=== PATIENT | male | born 1990 | race Caucasian/White ===

== ENCOUNTER 2017-09-07 12:01 | Inpatient (IN) | payer MEDICAID, OTHER ==
[~2017-09-07] VITALS: Ht 180.3 cm; Wt 82.1 kg
[2017-09-07 12:09] VITALS: BP 158/108
--- NOTE | 2017-09-07 12:12 | NUR ---
PATIENT TAKEN TO ER BED 11
[2017-09-07] MEDS ORDERED: KETOROLAC 30 MG/ML VIAL IM ONE (12:20)
[2017-09-07] MEDS ORDERED: ONDANSETRON 4 MG ODT PO ONE (12:20)
[2017-09-07 13:04] LABS: BASOPHILS % (AUTO) 0.3 % (0.0-2.0); EOSINOPHILS % (AUTO) 0.3 % (0.0-4.0); HEMATOCRIT 50.5 % (36-52); LYMPHOCYTES # (AUTO) 1.8 K/uL (2.0-11.5); LYMPHOCYTES % (AUTO) 14.7 % (20.5-51.1); MEAN CORPUSCULAR HEMOGLOBIN 31 pg (27-31); MEAN CORPUSCULAR HGB CONC 34 g/dL (33-37); MEAN CORPUSCULAR VOLUME 91.7 fL (80-94); MONOCYTES # (AUTO) 0.7 K/uL (0.8-1.0); MONOCYTES % (AUTO) 6.3 % (1.7-9.3); NEUTROPHILS # (AUTO) 9.4 K/uL (1.8-7.7); NEUTROPHILS % (AUTO) 78.4 % (42.2-75.2); PLATELET COUNT (AUTO) 374 K/uL (140-450); RED BLOOD CELL COUNT(AUTO) 5.51 MIL/uL (4.20-6.10); RED CELL DISTRIBUTION WIDTH 13.2 % (11.6-13.7); WHITE BLOOD COUNT (AUTO) 11.9 K/uL (4.8-10.8)
--- NOTE | 2017-09-07 13:10 | NUR ---
NON RADIATING EPIGASTRIC THROBBING PAIN X2 DAYS; C/O WEAKNESS AND NAUSEA, DENIES VOMITING; PT STATES "IT FEELS LIKE I GOT KICKED IN THE STOMACH." PT ADMITS TO EATING SPOILED FOOD SEVERAL DAYS AGO, PT IS HOMELESS. DENIES DRUG USE. ABD SOFT, TENDER WITH PALPATION. NO OBVIOUS INJURY NOTED-NO BRUISING. DENIES DYSURIA, FEVERS/CHILLS. PT WITH DISHELVED APPEARANCE. HX DENIES
--- NOTE | 2017-09-07 13:13 | NUR ---
URINE COLLECTED AND SENT
[2017-09-07 13:54] LABS: ANION GAP 12.3 (8-16); CARBON DIOXIDE 30.2 mmol/L (21-32); CREATININE 0.7 mg/dL (0.7-1.3); POTASSIUM 4.5 mmol/L (3.5-5.1); TOTAL BILIRUBIN 0.3 mg/dL (0.0-1.0)
[2017-09-07] MEDS ORDERED: MORPHINE SULFATE 4 MG/ML SYR IVP ONE (14:15)
[2017-09-07] MEDS ORDERED: NACL 0.9% 1,000 ML IV ONE (14:15)
--- NOTE | 2017-09-07 14:35 | NUR ---
PT UPDATED ON STATUS FOR ADMISSION, VERBALIZED UNDERSTANDING.
[2017-09-07] MEDS ORDERED: ACETAMINOPHEN 325 MG TAB PO PRN (14:45)
[2017-09-07] MEDS ORDERED: HYDROcodone/APAP 7.5/325 MG 1 TAB PO PRN (14:45)
[2017-09-07] MEDS ORDERED: DOCUSATE SODIUM 100 MG GELCAP PO PRN (14:45)
[2017-09-07] MEDS ORDERED: MORPHINE SULFATE 4 MG/ML SYR IVP PRN (14:45)
[2017-09-07 15:15] LABS: APPEARANCE,URINE CLEAR (CLEAR); BILIRUBIN,URINE NEGATIVE (NEGATIVE); BLOOD, URINE NEGATIVE (NEGATIVE); COLOR,URINE YELLOW (YELLOW); LEUKOCYTE ESTERASE ,URINE NEGATIVE (NEGATIVE); NITRITE, URINE NEGATIVE (NEGATIVE); PH,URINE 7.5 (5.0-9.0); UGLUCOSE NEGATIVE (NEGATIVE)
[2017-09-07] MEDS ORDERED: hydrALAZINE 20 MG/ML VIAL IVP SCH (15:15)
--- NOTE | 2017-09-07 15:15 | NUR ---
NO ACUTE CHNAGES IN CONDITON, PT WITH EYES CLOSED, MOM AT BEDSIDE. VSS, ON MONITOR
[2017-09-07 15:30] VITALS: BP 152/113
--- NOTE | 2017-09-07 15:30 | NUR ---
PATIENT ARRIVED ON MST UNIT VIA ER BED/GURNEY. PATIENT ABLE TO AMBULATE FROM ER BED TO MST BED INDEPENDENTLY. NO DISTRESS NOTED. PAIN WITHIN TOLERABLE AT THIS TIME. RESPIRATIONS EVEN, UNLABORED, ON ROOM AIR. AAOX3, CALM, COOPERATIVE, SKIN COLOR APPROPRIATE TO ETHNICITY, WARM TO TOUCH. ABDOMEN SOFT, NON-DISTENDED. LUNGS CTA ON ALL LOBES. IV SITE INTACT, PATENT AND INFUSING IVF PER ORDERS. BP WAS ELEVATED, HYDRALAZINE IVP GIVEN PER MD ORDERS. ORIENTED PATIENT TO ROOM AND CALL LIGHT. REVIEWED PLAN OF CARE WITH PATIENT. PATIENT VERBALIZED UNDERSTANDING. SAFETY MEASURES IN PLACE, CALL LIGHT WITHIN REACH. WILL CONTINUE TO MONITOR.
--- NOTE | 2017-09-07 15:36 | NUR ---
Patient will be admitted to care of DR GARSIA. Admited to TELEMETRY. Will go to room 105B. Belongings list completed AND SENT WITH PT. Report GIVEN to ERIK IBARRA.
[2017-09-07 15:49] LABS: CHOL/HDL RATIO 2.6 (1-4.5); MAGNESIUM 2.1 mg/dL (1.8-2.4); THYROID STIMULATING HORMONE 0.43 uIU/mL (0.34-3.74)
[2017-09-07 15:54] LABS: PROTHROMBIN TIME 10.7 secs (10.8-13.4)
[2017-09-07 15:58] LABS: BARBITURATE, URINE NEG. ng/ml (NEG <=200); BENZODIAZEPINE, URINE NEG. ng/mL (NEG <=200); CANNABINOID, URINE POS. ng/mL (NEG <=50); COCAINE, URINE NEG. ng/mL (NEG <=300); OPIATE, URINE NEG. ng/mL (NEG <=2000); PHENCYCLIDINE SCREEN,URINE NEG. ng/mL (NEG <=25)
[2017-09-07] MEDS ORDERED: ONDANSETRON 4 MG/2 ML VIAL IM/IVP PRN (16:00)
[2017-09-07] MEDS: NACL 0.9% 1,000 ML IV SCH ×2 (16:04→21:54)
[2017-09-07] MEDS ORDERED: LEVOFLOXACIN 750 MG/D5W PREMIX 150 ML IV SCH (17:00)
--- NOTE | 2017-09-07 18:05 | NUR ---
PATIENT LYING IN BED SLEEPING, AROUSABLE BY VOICE. NO DISTRESS NOTED. PAIN WITHIN TOLERABLE AT THIS TIME. BP IS ELEVATED HOWEVER PATIENT IS ASYMPTOMATIC. SCHEDULED ANTIBIOTIC MEDICATION DUE GIVEN. SAFETY MEASURES IN PLACE, CALL LIGHT WITHIN REACH. WILL CONTINUE TO MONITOR.
--- NOTE | 2017-09-07 18:27 | NUR ---
PATIENT LYING IN BED SLEEPING, AROUSABLE BY VOICE. NO DISTRESS NOTED. WILL CONTINUE TO MONITOR.
--- NOTE | 2017-09-07 19:05 | NUR ---
BROOKS LEFT TAYLOR, EXPLAINED TO PT REGARDING WHY THE IS ADMITTING HIM, PT STATED HE STILL WANT TO GO HOME, NOTIFIED DR. ALCOCER, PT STATED WANTS TO GO HOME RIGHT NOW AND DOES NOT WANT TO SEE THE TAYLOR MERAZ PAPER SIGNED, IV TAKEN OUT. Addendum: 09/07/17 at 2053 by Rosy Johnson RN SHELBY PT
--- NOTE | 2017-09-07 19:31 | NUR ---
GAVE REPORT TO SAFETY AND HEALTH MANAGER NURSE FOR CONTINUITY OF CARE. PATIENT IN STABLE CONDITION.
--- NOTE | 2017-09-07 19:32 | NUR ---
PT LEFT UNIT IN STABLE CONDITION, NO DISTRESS NOTED, ALL BELONGING WITH PT. Addendum: 09/07/17 at 2053 by Rosy Johnson RN WRONG PT
--- NOTE | 2017-09-07 19:33 | NUR ---
RECD. RESTING IN SLEEPING, EASILY WAKES UP WHEN NAME CALLED AND QUESTION ASKED. A/OX3. RESPIRATION EVEN AND UNLABORED. IV OF NS AT 140 ML/HR INFUSING, LEFT AC G22. ANSWERED "TIRED" WHEN ASKED HOW HE IS FEELING. PLAN OF CARE FOR THE SHIFT DISCUSSED. JUST NODS. REMINDED TO CALL NURSE WHEN NEEDING HELP, CALL LIGHT IN REACH. VERBALIZED UNDERSTANDING. DENIES PAIN 0/10.
[2017-09-07 20:00] VITALS: BP 145/98
--- NOTE | 2017-09-07 20:00 | NUR ---
Patient's Plan of Care was discussed and reviewed with CELL ROOM OPERATOR: AYO
[2017-09-08] VITALS (7 sets, daily range): BP systolic 136–154; BP diastolic 88–111
[2017-09-08] MEDS: NACL 0.9% 1,000 ML IV SCH ×4 (00:35→19:28)
--- NOTE | 2017-09-08 00:40 | NUR ---
INFORMED DR. GONZALEZ, PATIENT BP - 150/105. HR -67. WILL CHECK PATIENT MEDICATIONS.
--- NOTE | 2017-09-08 03:00 | NUR ---
AWAKE, RESTING IN BED, WATCHING TV.
--- NOTE | 2017-09-08 06:00 | NUR ---
SLEEPING COMFORTABLY IN BED.
--- NOTE | 2017-09-08 06:30 | NUR ---
INFORMED RESIDENT ON DUTY FOR THIS AM, PT BP - 153/110, WILL ORDER MEDICATION.
--- NOTE | 2017-09-08 07:05 | NUR ---
PATIENT ASLEEP AT THIS TIME. PATIENT AROUSABLE TO NAME. PATIENT ALERT AND ORIENTED X3. HAD TO REORIENT PATIENT TO WHICH HOSPITAL HE IS AT. PATIENT PRESENTS WITH NO DIFFICULTY BREATHING. PATIENT DESCRIBES HIS PAIN IN HIS ABDOMEN DULL AND NON-TENDER. PATIENT STATES, "THE PAIN IS BEARABLE". PATIENT HAS A LEFT AC IV 22G FLOWING 140 ML/HR NORMAL SALINE. UPDATED BOARD IN PATIENT'S ROOM. EMPTIED PATIENT'S URINAL. URINE APPEARS CLEAR AND LIGHT YELLOW. PUT CALL LIGHT WITHIN REACH OF PATIENT. WILL CONTINUE TO MONITOR
--- NOTE | 2017-09-08 07:05 | NUR ---
RESTING COMFORTABLY SLEEPING IN BED, ENDORSED TO AM NURSE FOR CONTINUITY OF CARE.
--- NOTE | 2017-09-08 07:09 | NUR ---
PATIENT HAS BEEN SCREENED AND CATEGORIZED LOW NUTRITION RISK. PATIENT WILL BE SEEN WITHIN 7 DAYS OF ADMISSION. 09/14/17 CARRIE COLIN MS, RDN
--- NOTE | 2017-09-08 08:30 | NUR ---
PATIENT AWAKE AT THIS TIME. PATIENT COMPLAINS OF NO PAIN AND SHOWS NO SIGNS OF RESPIRATORY DISTRESS. WILL CONTINUE TO MONITOR PATIENT.
[2017-09-08 08:36] LABS: T4 (THYROXINE) 5.4 ug/dL (4.5-12.0)
[2017-09-08] MEDS ORDERED: LACTOBACILLUS RHAMNOSUS GG 1 EACH CAP PO SCH (09:00)
[2017-09-08] MEDS ORDERED: LISINOPRIL 10 MG TAB PO SCH (09:00)
[2017-09-08 10:04] LABS: BASOPHILS % (AUTO) 0.4 % (0.0-2.0); EOSINOPHILS % (AUTO) 0.5 % (0.0-4.0); HEMATOCRIT 50.5 % (36-52); HEMOGLOBIN 16.9 g/dL (12.0-18.0); LYMPHOCYTES # (AUTO) 1.5 K/uL (2.0-11.5); MEAN CORPUSCULAR HEMOGLOBIN 31 pg (27-31); MEAN CORPUSCULAR HGB CONC 34 g/dL (33-37); MEAN CORPUSCULAR VOLUME 91.9 fL (80-94); MONOCYTES # (AUTO) 0.7 K/uL (0.8-1.0); MONOCYTES % (AUTO) 7.7 % (1.7-9.3); NEUTROPHILS # (AUTO) 6.8 K/uL (1.8-7.7); NEUTROPHILS % (AUTO) 74.4 % (42.2-75.2); PLATELET COUNT (AUTO) 337 K/uL (140-450); RED CELL DISTRIBUTION WIDTH 13.3 % (11.6-13.7); WHITE BLOOD COUNT (AUTO) 9.1 K/uL (4.8-10.8)
[2017-09-08 10:17] LABS: CARBON DIOXIDE 30.1 mmol/L (21-32); CREATININE 0.8 mg/dL (0.7-1.3); POTASSIUM 4.1 mmol/L (3.5-5.1)
[2017-09-08 10:20] LABS: MAGNESIUM 1.8 mg/dL (1.8-2.4); PHOSPHORUS 3.3 mg/dL (2.5-4.9)
--- NOTE | 2017-09-08 10:31 | NUR ---
PATIENT ASLEEP AT THIS TIME. NO SIGNS OF PAIN. NO RESPIRATORY DISTRESS OR RESPIRATORY DEPRESSION. WILL CONTINUE TO MONITOR PATIENT.
--- NOTE | 2017-09-08 12:20 | NUR ---
PATIENT ASLEEP AT THIS TIME. NO COMPLAINTS OF PAIN. WILL CONTINUE TO MONITOR PATIENT.
--- NOTE | 2017-09-08 13:35 | NUR ---
PATIENT ASLEEP AT THIS TIME. NO SIGNS OF PAIN. WILL CONTINUE TO MONITOR PATIENT.
--- NOTE | 2017-09-08 15:00 | NUR ---
PATIENT COMPLAINS OF NO PAIN. WILL CONTINUE TO MONITOR PATIENT.
--- NOTE | 2017-09-08 19:15 | NUR ---
GAVE REPORT TO NIGHTSHIFT NURSE AT BEDSIDE. PATIENT IN STABLE CONDITION.
--- NOTE | 2017-09-08 19:20 | NUR ---
RECEIVED PT REPORT AT BEDSIDE FROM DAYSNVFT NURSE FOR CONTINUITY OF CARE. PT WAS ASLEEP. AAOX4. NO S/S OF DISTRESS. PT ON RA. NO SOB. NO COMPLAINTS OF PAIN AT THIS TIME. BED LOWERED CALL LIGHT WITHIN REACH WILL CONTINUE TO MONITOR.
--- NOTE | 2017-09-08 21:43 | NUR ---
CHECKED ON PATIENT. PATIENT IS ASLEEP AND I GAVE HIM ORANGE JUICE. WILL CONTINUE TO MONITOR.
--- NOTE | 2017-09-08 23:52 | NUR ---
ASSESSED PT. PT ASLEEP. MONITORED VITAL SIGNS. PT ASLEEP. NO SOB. NO S/S OF DISTRESS. WILL CONTINUE TO MONITOR.
[2017-09-09] MEDS: NACL 0.9% 1,000 ML IV SCH ×2 (01:09→08:57)
[2017-09-09 04:00] VITALS: BP 132/83
--- NOTE | 2017-09-09 04:15 | NUR ---
TOOK PATIENTS VITAL SIGNS. PT ASLEEP. NO S/S OF DISTRESS, NO SOB. NO COMPLAINTS OF PAIN. WILL CONTINUE TO MONITOR.
--- NOTE | 2017-09-09 06:22 | NUR ---
DID ROUND CHECKS ON PT. PT WAS ASLEEP. ASSESSED ENVIRONMENT. NO SOB. NO S/S OF DISTRESS. WILL CONTINUE TO MONITOR.
[2017-09-09] MEDS ORDERED: LISI10TA11 PO (07:03)
[2017-09-09 07:14] LABS: BASOPHILS % (AUTO) 0.4 % (0.0-2.0); EOSINOPHILS # (AUTO) 0.1 K/uL (0-0.4); EOSINOPHILS % (AUTO) 1.3 % (0.0-4.0); HEMOGLOBIN 16.8 g/dL (12.0-18.0); LYMPHOCYTES # (AUTO) 2.1 K/uL (2.0-11.5); LYMPHOCYTES % (AUTO) 21.1 % (20.5-51.1); MEAN CORPUSCULAR HEMOGLOBIN 31 pg (27-31); MEAN CORPUSCULAR HGB CONC 34 g/dL (33-37); MEAN CORPUSCULAR VOLUME 92.6 fL (80-94); MONOCYTES # (AUTO) 0.7 K/uL (0.8-1.0); MONOCYTES % (AUTO) 7.3 % (1.7-9.3); NEUTROPHILS # (AUTO) 6.8 K/uL (1.8-7.7); NEUTROPHILS % (AUTO) 69.9 % (42.2-75.2); PLATELET COUNT (AUTO) 335 K/uL (140-450); RED BLOOD CELL COUNT(AUTO) 5.41 MIL/uL (4.20-6.10); RED CELL DISTRIBUTION WIDTH 13.2 % (11.6-13.7); WHITE BLOOD COUNT (AUTO) 9.8 K/uL (4.8-10.8)
--- NOTE | 2017-09-09 07:21 | NUR ---
GAVE REPORT TO DAYSHIFT NURSE AT BEDSIDE. PT SLEEPING. NO SOB NO S/S OF DISTRESS.
--- NOTE | 2017-09-09 07:22 | NUR ---
RECEIVED REPORT FROM CATALYST RECOVERY OPERATOR NURSE. PATIENT LYING DOWN IN BED SLEEPING, AROUSABLE BY VOICE. NO DISTRESS NOTED. DENIES ANY PAIN AT THIS TIME. RESPIRATIONS EVEN, UNLABORED, ON ROOM AIR. AAOX4, CALM, COOPERATIVE, CALM, COOPERATIVE, SKIN COLOR APPROPRIATE TO ETHNICITY, WARM TO TOUCH. SKIN IS INTACT. IV SITE INTACT, PATENT, AND INFUSING IVF PER ORDERS. ABDOMEN SOFT, NON-DISTENDED. PATIENT ABLE TO AMBULATE TO BATHROOM AND BACK TO BED WITH STABLE GAIT. REVIEWED PLAN OF CARE WITH PATIENT. PATIENT VERBALIZED UNDERSTANDING. SAFETY MEASURES IN PLACE, CALL LIGHT WITHIN REACH. WILL CONTINUE TO MONITOR.
[2017-09-09 07:26] LABS: ANION GAP 12.8 (8-16); CARBON DIOXIDE 28.9 mmol/L (21-32); CREATININE 0.8 mg/dL (0.7-1.3); POTASSIUM 4.7 mmol/L (3.5-5.1)
[2017-09-09 07:32] LABS: MAGNESIUM 1.8 mg/dL (1.8-2.4); PHOSPHORUS 4.3 mg/dL (2.5-4.9)
[2017-09-09 08:00] VITALS: BP 141/96
[2017-09-09] MEDS ORDERED: LISINOPRIL 10 MG TAB PO SCH ×2 (09:00)
--- NOTE | 2017-09-09 09:00 | NUR ---
PATIENT LYING IN BED SLEEPING, AROUSABLE BY VOICE. NO DISTRESS NOTED. DENIES ANY PAIN. SCHEDULED MEDICATIONS DUE GIVEN. SAFETY MEASURES IN PLACE, CALL LIGHT WITHIN REACH. WILL CONTINUE TO MONITOR.
--- NOTE | 2017-09-09 10:30 | NUR ---
PATIENT GOING TO GO HOME TODAY. NOTIFIED PATIENT. CALLED MOTHER ON PHONE. MOTHER TO COME BEAN SNIPPER PATIENT FROM HOSPITAL AROUND 1100 TODAY. DISCHARGE INSTRUCTIONS PROVIDED TO PATIENT IN PREFERRED LANGUAGE OF WELSH, FOLLOW-UP VISIT WITH DR. [facility], NEW/CHANGED MEDICATIONS REGIMEN, AND DIET REGIMEN TO CONTROL PANCREATITIS. ANSWERED ALL OF PATIENT'S QUESTIONS REGARDING DISCHARGE. PATIENT VERBALIZED COMPLETE UNDERSTANDING. IF BANDS REMOVED. IV SITE REMOVED WITH MINIMAL BLOOD AND LUMEN COMPLETELY INTACT. AWAITING FOR MOTHER TO COME BEAN SNIPPER PATIENT TO GO HOME VIA PRIVATE VEHICLE. WILL CONTINUE TO MONITOR.
--- NOTE | 2017-09-09 10:45 | NUR ---
COMMUNITY [employer]OURCES, ALCOHOL/ABUSE RESOURCES PROVIDED TO PATIENT. PATIENT VERBALIZED UNDERSTANDING OF RESOURCES AND SIGNED HOMELESS WAIVER FORM. WILL CONTINUE TO MONITOR.
--- NOTE | 2017-09-09 11:10 | NUR ---
MOTHER AT BEDSIDE READY TO TAKE PATIENT HOME. PATIENT ALL DRESSED UP AND READY TO GO HOME. ALL BELONGINGS WITH PATIENT. PATIENT DISCHARGED AT THIS TIME VIA PRIVATE VEHICLE TO HOME IN STABLE CONDITION.
== END 2017-09-09 11:10 | disposition home or self-care (01) | DRG 282 ==
LOC: MED 12:01 → MTU 14:50
PROVIDERS: ADMIT Family Medicine Sports Medicine; ATTEND Family Medicine Sports Medicine
DX: K85.20 Alcohol induced acute pancreatitis without necrosis or infection (principal); R65.10 Systemic inflammatory response syndrome (SIRS) of non-infectious origin without acute organ dysfunction; Z87.442 Personal history of urinary calculi; Z90.49 Acquired absence of other specified parts of digestive tract; F15.90 Other stimulant use, unspecified, uncomplicated; Z72.89 Other problems related to lifestyle; R26.9 Unspecified abnormalities of gait and mobility; I16.1 Hypertensive emergency; F12.10 Cannabis abuse, uncomplicated; Z71.6 Tobacco abuse counseling; Z71.41 Alcohol abuse counseling and surveillance of alcoholic
CPT/HCPCS: 36415; 71045; 80048; 80053; 80305; 81003; 82150; 83036; 83690; 83735; 83880; 84100; 84436; 84443; 84479; 84484; 85025; 85610; 85730; 87040; 87081; 87086; 93005; 96361; 96372; 96374; 99285; J0360; J1885; J1956; J2270; J7030; Q0092; S0119